=== PATIENT | female | born 1980 ===

== ENCOUNTER 2020-05-08 09:00 | Inpatient (IN) | payer OTHER ==
[~2020-05-08] VITALS: Ht 177.8 cm; Wt 81.6 kg
[2020-05-10] MEDS ORDERED: PRENATAL 19 TA1 EACH PO (06:12)
== END 2020-05-13 13:37 | disposition home or self-care (01) | DRG 788 ==
LOC: LDR 05-10 05:49 → O/R 05-10 20:12 → OB/GYN 05-10 21:37 → SURG-SUITE 05-10 21:41 → O/R 05-18 09:00
PROVIDERS: ADMIT Obstetrics & Gynecology; ATTEND Obstetrics & Gynecology
PROC: 3E033VJ Introduction of Other Hormone into Peripheral Vein, Percutaneous Approach (ICD-10-PCS; 2020-05-10)
PROC: 4A1HXFZ Monitoring of Products of Conception, Cardiac Rhythm, External Approach (ICD-10-PCS; 2020-05-10)
PROC: 10D00Z1 Extraction of Products of Conception, Low, Open Approach (ICD-10-PCS; principal; 2020-05-10 19:00)
DX: O62.1 Secondary uterine inertia (principal); Z3A.38 38 weeks gestation of pregnancy; O69.81X0 Labor and delivery complicated by cord around neck, without compression, not applicable or unspecified; Z37.0 Single live birth; O42.02 Full-term premature rupture of membranes, onset of labor within 24 hours of rupture